=== PATIENT | female | born 1995 | race African-American/Black ===

== ENCOUNTER 2018-09-16 14:28 | Emergency (ER) | payer OTHER ==
[~2018-09-16] VITALS: Ht 167.6 cm; Wt 120.2 kg
[2018-09-16] MEDS ORDERED: IV NORMAL SALINE 1000ML BAG 1,000 ML IV ONE (15:00)
[2018-09-16] MEDS ORDERED: ONDANSETRON PF 4 MG/2 ML VIAL. IV ONE (15:00)
[2018-09-16 15:44] LABS: BASO % 0 % (0-3); EOS % 1 % (0-3); HEMATOCRIT 39.4 % (36.0-47.0); HEMOGLOBIN 13.9 g/dL (12.0-15.5); LYMPH # 0.6 x10^3/uL (1.0-4.8); LYMPH % 9 % (24-48); MEAN CORPUSCULAR HEMOGLOBIN 33 pg (25-35); MEAN CORPUSCULAR HGB CONC 35 g/dL (31-37); MEAN CORPUSCULAR VOLUME 93 fL (79-100); MONO # 0.3 x10^3/uL (0.0-1.1); MONO % 5 % (0-9); NEUT # 5.9 x10^3uL (1.8-7.7); NEUT % 85 % (31-73); PLATELET COUNT 166 x10^3/uL (140-400); RED BLOOD COUNT 4.23 x10^6/uL (3.50-5.40); RED CELL DISTRIBUTION WIDTH 12.8 % (11.5-14.5)
[2018-09-16 15:53] LABS: CALCIUM 9.1 mg/dL (8.5-10.1); CREATININE 0.6 mg/dL (0.6-1.0); GFR 151.3; POTASSIUM 3.4 mmol/L (3.5-5.1)
[2018-09-16 15:58] LABS: BILIRUBIN,URINE SMALL (NEG); CLARITY,URINE CLOUDY; COLOR,URINE AMBER; NITRITE,URINE NEGATIVE (NEG); PH,URINE 5.5; PROTEIN,URINE NEGATIVE (NEG-TRACE)
[2018-09-16 16:05] LABS: AMORPHOUS SEDIMENT,UR PRESENT /HPF; BACTERIA,URINE FEW /HPF (0-FEW); RBC,URINE 0 /HPF (0-2); SQUAMOUS EPITHELIAL CELL,UR OCC /LPF
--- NOTE | 2018-09-16 16:37 | PHYS DOC ---
Past Medical History Past Medical History: No Pertinent History Past Surgical History: Alcohol Use: None Drug Use: None Adult General Chief Complaint Chief Complaint: VOMITING IN HPI HPI Patient is a 23 year old female who presents to the emergency room with complaints of nausea, vomiting, and diarrhea for the last 2 days. Patient states that she is currently , her last menstrual period was on June 02, 2018. She is 2 para 1. Her [facility] physician is Chyna Kurtz, who she saw in the office one month ago. Patient denies any irregular vaginal discharge, vaginal bleeding, or pelvic pain. She states she has had at least 10 episodes of nausea and vomiting in last 24 hours at least 15 episodes of diarrhea. Reports a decreased appetite and an inability to keep anything down. She states she was at work today when she became too ill to continue to be there so she came to the ER. Patient denies any fever, cough, congestion, ear pain, headache, or sore throat. Patient states reports and fatigued at this time. She denies any syncope. Review of Systems Review of Systems Constitutional: Denies fever or chills [] HENT: Denies nasal congestion or sore throat [] Respiratory: Denies cough or shortness of breath [] Cardiovascular: No additional information not addressed in HPI [] GI: See history of present illness : Denies dysuria, increased urinary frequency, or hematuria; see HPI [] Musculoskeletal: Denies back pain or joint pain [] Integument: Denies rash or skin lesions [] Neurologic: Denies headache, focal weakness or sensory changes [] All other systems were reviewed and found to be within normal limits, except as documented in this note. Current Medications Current Medications Current Medications Medications (Trade) Dose Ordered Sig/Negrito Start Time Stop Time Status Last Admin Dose Admin Ondansetron HCl (Zofran) 4 mg 1X ONCE 09/16/18 15:00 09/16/18 15:04 DC 09/16/18 15:36 4 MG Potassium Chloride (Klor-Con) 20 meq 1X ONCE 09/16/18 19:45 09/16/18 19:46 DC 09/16/18 19:45 20 MEQ Sodium Chloride 1,000 ml @ 1,000 mls/hr 1X ONCE 09/16/18 15:00 09/16/18 15:59 DC 09/16/18 15:00 1,000 MLS/HR Allergies Allergies Allergies Coded Allergies Type Severity Reaction Last Updated Verified No Known Drug Allergies 09/16/18 No Physical Exam Physical Exam Constitutional: Well developed, well nourished, mild distress, ill appearance, obese. [] HENT: Normocephalic, atraumatic, bilateral external ears normal, oropharynx dry, lips dry, no oral exudates, nose normal. [] Eyes: PERRLA, conjunctiva normal, no discharge. [] Neck: Normal range of motion, no tenderness, supple, no stridor. [] Cardiovascular:Heart rate regular rhythm, no murmur [] Lungs & Thorax: Bilateral breath sounds clear to auscultation [] Abdomen: Bowel sounds normal, soft, no tenderness, no pulsatile masses; palpable fundus below umbilicus [] Skin: Warm, dry, no erythema, no rash. [] Back: No tenderness, no CVA tenderness. [] Extremities: No cyanosis, no clubbing, ROM intact, no edema. [] Neurologic: Alert and oriented X 3, normal motor function, normal sensory function, no focal deficits noted. [] Psychologic: Affect normal, judgement normal, mood normal. [] Current Patient Data Vital Signs Vital Signs Date Time Temp Pulse Resp B/P (MAP) Pulse Ox O2 Delivery O2 Flow Rate FiO2 09/16/18 19:45 84 15 108/58 (75) 100 Room Air 09/16/18 14:43 98.1 98.1 Lab Values Laboratory Tests Test 09/16/18 15:29 09/16/18 15:35 09/16/18 15:39 White Blood Count 7.0 x10^3/uL (4.0-11.0) Red Blood Count 4.23 x10^6/uL (3.50-5.40) Hemoglobin 13.9 g/dL (12.0-15.5) Hematocrit 39.4 % (36.0-47.0) Mean Corpuscular Volume 93 fL (79-100) Mean Corpuscular Hemoglobin 33 pg (25-35) Mean Corpuscular Hemoglobin Concent 35 g/dL (31-37) Red Cell Distribution Width 12.8 % (11.5-14.5) Platelet Count 166 x10^3/uL (140-400) Neutrophils (%) (Auto) 85 % (31-73) H Lymphocytes (%) (Auto) 9 % (24-48) L Monocytes (%) (Auto) 5 % (0-9) Eosinophils (%) (Auto) 1 % (0-3) Basophils (%) (Auto) 0 % (0-3) Neutrophils # (Auto) 5.9 x10^3uL (1.8-7.7) Lymphocytes # (Auto) 0.6 x10^3/uL (1.0-4.8) L Monocytes # (Auto) 0.3 x10^3/uL (0.0-1.1) Eosinophils # (Auto) 0.0 x10^3/uL (0.0-0.7) Basophils # (Auto) 0.0 x10^3/uL (0.0-0.2) Segmented Neutrophils % 75 % (35-66) H Band Neutrophils % 11 % (0-9) H Lymphocytes % 12 % (24-48) L Monocytes % 2 % (0-10) Platelet Estimate Adequate (ADEQUATE) Sodium Level 141 mmol/L (136-145) Potassium Level 3.4 mmol/L (3.5-5.1) L Chloride Level 105 mmol/L (98-107) Carbon Dioxide Level 23 mmol/L (21-32) Anion Gap 13 (6-14) Blood Urea Nitrogen 6 mg/dL (7-20) L Creatinine 0.6 mg/dL (0.6-1.0) Estimated GFR (Cockcroft-Gault) 151.3 Glucose Level 84 mg/dL (70-99) Calcium Level 9.1 mg/dL (8.5-10.1) Urine Color Aminah Urine Clarity Cloudy Urine pH 5.5 Urine Specific [place] >=1.030 Urine Protein Negative mg/dL (NEG-TRACE) Urine Glucose (UA) Negative mg/dL (NEG) Urine Ketones (Stick) >=80 mg/dL (NEG) Urine Blood Negative (NEG) Urine Nitrite Negative (NEG) Urine Bilirubin Small (NEG) Urine Urobilinogen Dipstick 1.0 mg/dL (0.2 mg/dL) Urine Leukocyte Esterase Moderate (NEG) Urine RBC 0 /HPF (0-2) Urine WBC 5-10 /HPF (0-4) Urine Squamous Epithelial Cells Occ /LPF Urine Amorphous Sediment Present /HPF Urine Bacteria Few /HPF (0-FEW) Urine Mucus Mod /LPF POC Urine HCG, Qualitative Hcg positive (Negative) Laboratory Tests 09/16/18 15:29 Laboratory Tests 09/16/18 15:29 EKG EKG [] Radiology/Procedures Radiology/Procedures PROCEDURE: OB LIMITED OB ULTRASOUND, > 14 WEEKS Clinical Indication: n/v/d
unable to find heart tones with bedside Doppler Comparison: None. Technique: Multiple grayscale images, color Doppler, and M-mode images of the uterus are obtained. Findings: There is a single intrauterine gestation in transverse presentation. The placenta is anterior in location without evidence of placenta previa. The amount of amniotic fluid appears appropriate. Cervical length is 4.2 cm. Biometrical data: BPD = 3.2 cm for 16 weeks 0 days. HC = 11.6 cm for 15 weeks 5 days. AC = 10.1 cm for 16 weeks 1 days. FL = 2.1 cm for 16 weeks 1 days. HC/AC ratio = 1.15. Overall, the estimated sonographic gestational age is 16 weeks and 0 days for an estimated date of delivery of March 03, 2019. The estimated date of delivery provided by the last menstrual period is March 02, 2019. Estimated weight is 144 +/- 21 grams. The estimated heart rate is 157 beats per minute. A complete anatomic survey is not performed due to early gestational age. This can be performed at 20 weeks gestation. IMPRESSION: 1. Single live intrauterine gestation with estimated sonographic gestational age of 16 weeks and 0 days. 2. Estimated heart rate is 157 bpm. [] Course & Med Decision Making Course & Med Decision Making Pertinent Labs and Imaging studies reviewed. (See chart for details) Pt was given 1L NS and 4 mg of zofran IV, reports feeling better after medications. Prescription for zofran written. Encouraged clear fluids x24 hours Patient verbalized an understanding of home care, medications, follow-up, and return to ED instructions and was in agreement with the plan of care. 2252- Called patient at home and advised of UTI, prescription for keflex 500 mg PO BID x14 days called into [facility] at [phone] per pt request. [] Dragon Disclaimer Dragon Disclaimer This electronic medical record was generated, in whole or in part, using a voice recognition dictation system. Departure Departure Impression: Primary Impression: Nausea/vomiting in Additional Impressions: Diarrhea during Gastroenteritis Hypokalemia Disposition: 01 HOME, SELF-CARE Condition: STABLE Referrals: UNKNOWN PCP NAME (PCP) Patient Instructions: Viral Gastroenteritis, [id number] Additional Instructions: Fill prescriptions and use them as directed. Recommend clear fluids for the next 24 hours. Then you may advance to bland foods such as bananas, rice, applesauce, and dry toast. Follow-up with your primary care doctor in the next 1 -2 days. Return to the emergency room if your symptoms worsen. Scripts Ondansetron (ONDANSETRON ODT) 4 Mg Tab.rapdis 1 TAB PO PRN Q6-8HRS PRN for NAUSEA/VOMITING, #16 TAB 0 Refills Prov: YOVANI CROWE APRN 09/16/18 Problem Qualifiers YOVANI CROWE APRN Sep 16, 2018 16:37
[2018-09-16 17:20] LABS: % BANDS 11 % (0-9); % LYMPHS 12 % (24-48); % MONOS 2 % (0-10); % SEGS 75 % (35-66); PLT ESTIMATE ADEQUATE (ADEQUATE)
--- NOTE | 2018-09-16 19:34 | RAD ---
OB ULTRASOUND, > 14 WEEKS Clinical Indication: n/v/d
unable to find heart tones with bedside Doppler Comparison: None. Technique: Multiple grayscale images, color Doppler, and M-mode images of the uterus are obtained. Findings: There is a single intrauterine gestation in transverse presentation. The placenta is anterior in location without evidence of placenta previa. The amount of amniotic fluid appears appropriate. Cervical length is 4.2 cm. Biometrical data: BPD = 3.2 cm for 16 weeks 0 days. HC = 11.6 cm for 15 weeks 5 days. AC = 10.1 cm for 16 weeks 1 days. FL = 2.1 cm for 16 weeks 1 days. HC/AC ratio = 1.15. Overall, the estimated sonographic gestational age is 16 weeks and 0 days for an estimated date of delivery of March 03, 2019. The estimated date of delivery provided by the last menstrual period is March 02, 2019. Estimated weight is 144 +/- 21 grams. The estimated heart rate is 157 beats per minute. A complete anatomic survey is not performed due to early gestational age. This can be performed at 20 weeks gestation. IMPRESSION: 1. Single live intrauterine gestation with estimated sonographic gestational age of 16 weeks and 0 days. 2. Estimated heart rate is 157 bpm. Electronically signed by: Lionel Condon MD (09/16/2018 7:30 PM) [facility]
[2018-09-16 19:45] VITALS: BP 108/58
[2018-09-16] MEDS ORDERED: POTASSIUM CHLORIDE 20 MEQ TABLET.ER. PO ONE (19:45)
[2018-09-16] MEDS ORDERED: ONDA4TAB12 PO (19:56)
== END 2018-09-16 20:17 | disposition home or self-care (01) ==
LOC: ER 14:28
DX: O99.612 Diseases of the digestive system complicating pregnancy, second trimester (principal); K52.9 Noninfective gastroenteritis and colitis, unspecified; E87.6 Hypokalemia; Z3A.16 16 weeks gestation of pregnancy
CPT/HCPCS: 36415; 76815; 80048; 81001; 81025; 85007; 85025; 87086; 96361; 96374; 99284; J2405; J7030

== ENCOUNTER 2018-09-19 13:59 | Emergency (ER) | payer OTHER ==
[~2018-09-19] VITALS: Ht 170.2 cm; Wt 120.2 kg
[~2018-09-19 13:59] MED LIST: ONDA4TAB12 PO
[2018-09-19 14:10] VITALS: BP 130/65
[2018-09-19 14:46] LABS: BASO % 0 % (0-3); EOS # 0.1 x10^3/uL (0.0-0.7); EOS % 2 % (0-3); HEMATOCRIT 36.2 % (36.0-47.0); HEMOGLOBIN 12.4 g/dL (12.0-15.5); LYMPH # 1.2 x10^3/uL (1.0-4.8); LYMPH % 25 % (24-48); MEAN CORPUSCULAR HEMOGLOBIN 32 pg (25-35); MEAN CORPUSCULAR HGB CONC 34 g/dL (31-37); MEAN CORPUSCULAR VOLUME 93 fL (79-100); MONO # 0.2 x10^3/uL (0.0-1.1); MONO % 5 % (0-9); NEUT # 3.3 x10^3uL (1.8-7.7); NEUT % 69 % (31-73); PLATELET COUNT 145 x10^3/uL (140-400); RED BLOOD COUNT 3.89 x10^6/uL (3.50-5.40); RED CELL DISTRIBUTION WIDTH 12.7 % (11.5-14.5); WHITE BLOOD COUNT 4.7 x10^3/uL (4.0-11.0)
[2018-09-19 14:57] LABS: CALCIUM 8.8 mg/dL (8.5-10.1); CREATININE 0.6 mg/dL (0.6-1.0); GFR 151.3; POTASSIUM 3.5 mmol/L (3.5-5.1)
--- NOTE | 2018-09-19 15:23 | RAD ---
EXAM: Obstetrics sonogram. HISTORY: Vaginal spotting. TECHNIQUE: Sonographic imaging of a gravid uterus was performed. COMPARISON: 09/16/2018. FINDINGS: There is a single intrauterine fetus in transverse presentation with a heart rate of 155 bpm. There is a grade 1 anterolisthesis and without evidence of placenta previa. No subchorionic hematoma or abruption is seen. The cervix is closed and measures 3.8 cm in length. The biparietal diameter is 3.37 cm, corresponding to 16 weeks and 3 days. The head circumference is 12.76 cm, corresponding to 16 weeks and 3 days. The abdominal circumference is 10.70 cm, corresponding to 16 weeks and 4 days. The femoral length is 2.16 cm, corresponding to 16 weeks and 3 days. The estimated gestational age patient combined ultrasound measurements is 16 weeks and 3 days and the ALICE is 03/03/2019. IMPRESSION: Single intrauterine fetus with an estimated gestational age based on ultrasound measurements of 16 weeks and 3 days and heart rate of 155 bpm. No acute finding. Electronically signed by: Norma Win MD (09/19/2018 3:19 PM) [place] [id number]
--- NOTE | 2018-09-19 16:06 | PHYS DOC ---
Past Medical History Past Medical History: No Pertinent History Past Surgical History: Alcohol Use: None Drug Use: None Adult General Chief Complaint Chief Complaint: VAGINAL BLEEDING HPI HPI Patient is a 23 year old female who presents with vaginal bleeding during . The patient is a at approximately 16 weeks' gestation. She presents to the ER today complaining of vaginal bleeding. She did not have any brenda bleeding but noted some blood on her underpants as well as on the tissue after using the restroom. She denies pelvic cramping. Her symptoms started just prior to presentation. She denies vaginal discharge or urinary symptoms. No recent fever or chills. She is normally followed at the [facility] for her . Review of Systems Review of Systems Constitutional: Denies fever Eyes: Denies HENT: Denies nasal congestion or sore throat Respiratory: Denies cough or shortness of breath Cardiovascular: No additional information not addressed in HPI GI: Denies abdominal pain, nausea, vomiting, bloody stools or diarrhea : Denies dysuria or hematuria Musculoskeletal: Denies back pain Integument: Denies rash or skin lesions Neurologic: Denies headache Endocrine: Denies polyuria or polydipsia All other systems were reviewed and found to be within normal limits, except as documented in this note. Allergies Allergies Allergies Coded Allergies Type Severity Reaction Last Updated Verified No Known Drug Allergies 09/16/18 No Physical Exam Physical Exam Constitutional: Well developed, well nourished, no acute distress, non-toxic appearance HENT: Normocephalic, atraumatic, bilateral external ears normal, oropharynx moist Eyes: PERRLA, EOMI, conjunctiva normal Neck: Normal range of motion, no tenderness Cardiovascular:Heart rate regular rhythm, no murmur Lungs & Thorax: Bilateral breath sounds clear to auscultation Abdomen: Bowel sounds normal, soft, no tenderness Skin: Warm, dry, no erythema, no rash Back: No tenderness, no CVA tenderness Extremities: No tenderness, no cyanosis, no clubbing, ROM intact, no edema Neurologic: Alert and oriented X 3 Psychologic: Affect normal Pelvic exam: Normal female external genitalia. Vaginal mucosa is moist and uninflamed. There is no cervical motion tenderness. The cervical os appears to be closed and is palpated also to be closed. There is a scant amount of dark red blood emanating from the os. No adnexal tenderness or masses. Current Patient Data Vital Signs Vital Signs Date Time Temp Pulse Resp B/P (MAP) Pulse Ox O2 Delivery O2 Flow Rate FiO2 09/19/18 14:10 98.5 88 22 130/65 (86) 100 98.5 Lab Values Laboratory Tests Test 09/19/18 14:35 White Blood Count 4.7 x10^3/uL (4.0-11.0) Red Blood Count 3.89 x10^6/uL (3.50-5.40) Hemoglobin 12.4 g/dL (12.0-15.5) Hematocrit 36.2 % (36.0-47.0) Mean Corpuscular Volume 93 fL (79-100) Mean Corpuscular Hemoglobin 32 pg (25-35) Mean Corpuscular Hemoglobin Concent 34 g/dL (31-37) Red Cell Distribution Width 12.7 % (11.5-14.5) Platelet Count 145 x10^3/uL (140-400) Neutrophils (%) (Auto) 69 % (31-73) Lymphocytes (%) (Auto) 25 % (24-48) Monocytes (%) (Auto) 5 % (0-9) Eosinophils (%) (Auto) 2 % (0-3) Basophils (%) (Auto) 0 % (0-3) Neutrophils # (Auto) 3.3 x10^3uL (1.8-7.7) Lymphocytes # (Auto) 1.2 x10^3/uL (1.0-4.8) Monocytes # (Auto) 0.2 x10^3/uL (0.0-1.1) Eosinophils # (Auto) 0.1 x10^3/uL (0.0-0.7) Basophils # (Auto) 0.0 x10^3/uL (0.0-0.2) Maternal Serum HCG Beta Subunit 66745 mIU/mL (0-5) H Sodium Level 143 mmol/L (136-145) Potassium Level 3.5 mmol/L (3.5-5.1) Chloride Level 108 mmol/L (98-107) H Carbon Dioxide Level 25 mmol/L (21-32) Anion Gap 10 (6-14) Blood Urea Nitrogen 4 mg/dL (7-20) L Creatinine 0.6 mg/dL (0.6-1.0) Estimated GFR (Cockcroft-Gault) 151.3 Glucose Level 84 mg/dL (70-99) Calcium Level 8.8 mg/dL (8.5-10.1) Laboratory Tests 09/19/18 14:35 Laboratory Tests 09/19/18 14:35 Microbiology 09/19/18 Wet Prep - Final, Complete EKG EKG [] Radiology/Procedures Radiology/Procedures FINDINGS: There is a single intrauterine fetus in transverse presentation with a heart rate of 155 bpm. There is a grade 1 anterolisthesis and without evidence of placenta previa. No subchorionic hematoma or abruption is seen. The cervix is closed and measures 3.8 cm in length. The biparietal diameter is 3.37 cm, corresponding to 16 weeks and 3 days. The head circumference is 12.76 cm, corresponding to 16 weeks and 3 days. The abdominal circumference is 10.70 cm, corresponding to 16 weeks and 4 days. The femoral length is 2.16 cm, corresponding to 16 weeks and 3 days. The estimated gestational age patient combined ultrasound measurements is 16 weeks and 3 days and the ALICE is 03/03/2019. IMPRESSION: Single intrauterine fetus with an estimated gestational age based on ultrasound measurements of 16 weeks and 3 days and heart rate of 155 bpm. No acute finding. Course & Med Decision Making Course & Med Decision Making Pertinent Labs and Imaging studies reviewed. (See chart for details) Patient was evaluated in the emergency department for vaginal bleeding in the setting of . Ultrasound was completed and did not reveal any acute findings. She had heart tones of 155. Pelvic exam revealed a closed cervical os. Blood type was B+. No indication today of miscarriage. Patient was discharged to home. She was advised to follow-up with her primary OB doctor. Her hemoglobin was checked and was stable. Her quantitative hCG was also checked but is of little value at this stage in her . Patient states she has a follow-up on it with her OB doctor tomorrow. She was discharged to home and all of her questions are answered prior to discharge. Dragon Disclaimer Dragon Disclaimer This electronic medical record was generated, in whole or in part, using a voice recognition dictation system. Departure Departure Disposition: 01 HOME, SELF-CARE Condition: GOOD Referrals: UNKNOWN PCP NAME (PCP) VINCENT TREVINO DO Sep 19, 2018 16:06
[2018-09-21 14:32] LABS: GC PROBE Negative (Negative)
== END 2018-09-19 16:30 | disposition home or self-care (01) ==
LOC: ER 13:59
DX: O46.92 Antepartum hemorrhage, unspecified, second trimester (principal); Z3A.16 16 weeks gestation of pregnancy
CPT/HCPCS: 36415; 76805; 80048; 84702; 85025; 86850; 86900; 86901; 87491; 87591; 99284; Q0111

== ENCOUNTER 2022-01-20 22:59 | Emergency (ER) | payer SELFPAY ==
[~2022-01-20] VITALS: Ht 167.6 cm; Wt 135.9 kg
[2022-01-21 02:06] LABS: BACTERIA,URINE FEW /HPF (0-FEW); RBC,URINE 0 /HPF (0-2)
--- NOTE | 2022-01-21 02:16 | RAD ---
US OB TRANSVAGINAL Clinical Indication: Reason: possible , r/o ectopic /vomiting, , cramping. Comparison: None. TECHNIQUE: Real-time ultrasound imaging of the pelvis using transvaginal window is performed. Findings: There is technically difficult due to patient body habitus. The ovaries are not identified perhaps du e to overlying bowel gas. No evidence of adnexal mass. No pelvic free fluid is seen. There is a tiny nabothian cyst. Anteverted uterus measures 10 x 5.7 x 5.5 cm. There is an intrauterine gestational sac containing a yolk sac and pole near the fundus. The sh ape of the gestational sac is normal. No perigestational hemorrhage is seen. Durant-rump length 0.8 cm, 6 weeks and 6 days. EDC ultrasound is September 10, 2022. Estimated heart rate 130 bpm. IMPRESSION: Single live intrauterine gestation, estimated sonographic gestational age is 6 weeks and 6 days. Electronically signed by: Lionel Condon MD (01/21/2022 2:14 AM) [facility]
[2022-01-21 02:20] VITALS: BP 123/72
--- NOTE | 2022-01-21 02:59 | PHYS DOC ---
Past Medical History Past Medical History: No Pertinent History Past Surgical History: Smoking Status: Current Every Day Smoker Alcohol Use: None Drug Use: None General Adult EDM: Chief Complaint: VOMITING IN HPI: HPI: 26-year-old female presents with suprapubic pain. She is currently . Does not know how far along she is. One of the ultrasound done she can make sure everything was okay. This is her third . No issues with prior pregnancies. No dysuria urgency or frequency. No vomiting or diarrhea. Review of Systems: Review of Systems: Constitutional: Denies fever or chills. [] Eyes: Denies change in visual acuity. [] HENT: Denies nasal congestion or sore throat. [] Respiratory: Denies cough or shortness of breath. [] Cardiovascular: Denies chest pain or edema. [] GI: Positive for suprapubic pain. : Denies dysuria. [] Musculoskeletal: Denies back pain or joint pain. [] Integument: Denies rash. [] Neurologic: Denies headache, focal weakness or sensory changes. [] Endocrine: Denies polyuria or polydipsia. [] Lymphatic: Denies swollen glands. [] Psychiatric: Denies depression or anxiety. [] Heart Score: C/O Chest Pain: No Risk Factors: Risk Factors: DM, Current or recent (<one month) smoker, HTN, HLP, family history of CAD, obesity. Risk Scores: Score 0 - 3: 2.5% MACE over next 6 weeks - Discharge Home Score 4 - 6: 20.3% MACE over next 6 weeks - Admit for Clinical Observation Score 7 - 10: 72.7% MACE over next 6 weeks - Early Invasive Strategies Allergies: Allergies: Allergies Coded Allergies Type Severity Reaction Last Updated Verified No Known Drug Allergies 01/21/22 No Physical Exam: PE: Constitutional: Well developed, well nourished, no acute distress, non-toxic appearance. [] HENT: Normocephalic, atraumatic, bilateral external ears normal, oropharynx moist, no oral exudates, nose normal. [] Eyes: PERRLA, EOMI, conjunctiva normal, no discharge. [] Neck: Normal range of motion, no tenderness, supple, no stridor. [] Cardiovascular:Heart rate regular rhythm, no murmur [] Lungs & Thorax: Bilateral breath sounds clear to auscultation [] Abdomen: Bowel sounds normal, soft, no tenderness, no masses, no pulsatile masses. [] Skin: Warm, dry, no erythema, no rash. [] Back: No tenderness, no CVA tenderness. [] Extremities: No tenderness, no cyanosis, no clubbing, ROM intact, no edema. [] Neurologic: Alert and oriented X 3, normal motor function, normal sensory function, no focal deficits noted. [] Psychologic: Affect normal, judgement normal, mood normal. [] Current Patient Data: Labs: Laboratory Tests Test 01/21/22 01:30 01/21/22 01:42 Urine Collection Type Unknown Urine Color (Auto) Yellow Urine Turbidity Hazy Urine pH (Auto) 5.5 (<5.0-8.0) Urine Specific [place] 1.036 (1.000-1.030) Urine Protein (Auto) 30 mg/dL (Negative) Urine Glucose (Auto)(UA) Negative mg/dL (Negative) Urine Ketones (Auto) 10 mg/dL (Negative) Urine Blood (Auto) Negative (Negative) Urine Nitrite Negative (Negative) Urine Bilirubin (Auto) Negative (Negative) Urine Urobilinogen (Auto) 2 mg/dL (Normal) Urine Leukocyte Esterase (Auto) Large (Negative) Urine RBC 0 /HPF (0-2) Urine WBC 11-20 /HPF (0-4) Urine Squamous Epithelial Cells Many /LPF Urine Bacteria Few /HPF (0-FEW) Urine Mucus Mod /LPF POC Urine HCG, Qualitative Hcg positive (Negative) Vital Signs: Vital Signs Date Time Temp Pulse Resp B/P (MAP) Pulse Ox O2 Delivery O2 Flow Rate FiO2 01/21/22 00:35 98.1 89 20 131/75 (93) 100 Room Air 98.1 EKG: EKG: [] Radiology/Procedures: Radiology/Procedures: [] Course & Med Decision Making: Course & Med Decision Making Pertinent Labs and Imaging studies reviewed. (See chart for details) Ultrasound shows a right over 14 days. Dragon Disclaimer: Dragon Disclaimer: This electronic medical record was generated, in whole or in part, using a voice recognition dictation system. Departure Departure Disposition: 07 LEFT AWOL/ELOPED Condition: STABLE Referrals: UNKNOWN PCP NAME (PCP) MARE BURNS MD January 21, 2022 02:59
== END 2022-01-21 02:25 | disposition left against medical advice (07) ==
LOC: ER 22:59
DX: O26.891 Other specified pregnancy related conditions, first trimester (principal); R10.30 Lower abdominal pain, unspecified; O21.9 Vomiting of pregnancy, unspecified; F17.200 Nicotine dependence, unspecified, uncomplicated; Z3A.00 Weeks of gestation of pregnancy not specified
CPT/HCPCS: 76817; 81001; 81025; 87086; 99284-25; 99285-25